=== PATIENT | female | born 1965 | race Caucasian/White ===

== ENCOUNTER 2016-06-06 15:15 | Emergency (ER) | payer OTHER ==
--- NOTE | 2016-06-06 17:08 | ED ORDER SUMMARY ---
..... Patient: GABRIELLA VELASQUEZ OrderSheet [facility] VisitID: [id number] [address] [place] [address] 50y, F Registration Date/Time: 06/06/2016 ORDER SHEET Weight: 81.1 kg (stated) Allergies: Sulfa Antibiotics, Penicillin GENERAL ORDERS: Ribs Unilat w PA Chest Left Urgent (16:00 06/06/2016 Charmaine YARBROUGH) ([facility]ck 16:[facility]) (16:40 ASchmuck) MEDICATION ORDERS: Toradol IM 60 mg (NOW) (16:02 06/06/2016 Charmaine YARBROUGH) (Ack 16:09 ASchmuck) (Cancelled: Physician Order16:32 ASchmuck) Dilaudid IM 1 mg (NOW) (16:29 06/06/2016 Charmaine YARBROUGH) (16:39 ASchmuck) Ativan IM 1 mg (NOW) (16:29 06/06/2016 Charmaine YARBROUGH) (16:39 ASchmuck) Albuterol Neb Tx 2.5 mg (NOW, N) (16:29 06/06/2016 Charmaine YARBROUGH) (17:06 ASchmuck) IV FLUIDS: ORDER SHEET NOTES: [Electronically signed by Gregorio Bermudez R.N. (22:06/06/2016)] [Electronically signed by Tyrone Ramsay MD (12:13 06/08/2016)] [Electronically locked/signed by Gregorio Bermudez R.N. (22:06/06/2016)]
--- NOTE | 2016-06-06 17:08 | ED NURSING NOTES ---
Clinical Report - Nurses [facility] [address] [place] [address] 06/06/2016 15:17 Patient: GABRIELLA VELASQUEZ TRIAGE Triage time 15:42 Jun 06 2016. Acuity: LEVEL 4. Chief Complaint: BACK PAIN. 15:50 06/06/16. Alert. SEPSIS SCREEN: Sepsis Screen. Negative (no infection suspected/documented). BRITTANY COMA SCORE: Brittany Coma Scale: 15- eyes open spontaneously (4); best verbal response- oriented x 4 (5); best motor response- obeys commands (6). --15:50 Muriel Berrios 15:42 06/06/16. BP: 136/95. HR: 101. RR: 18. O2 saturation: 92% on room air. Temp: 98.6 F. Pain level now 7/10. --15:50 Muriel Berrios. Weight: 81.1 kg stated. Height/Length: 58 inches Per Patient. BMI: 37.4. --15:49 Muriel Berrios. Medications AmLODIPine Besylate Oral. --15:45 Muriel Berrios Diabetic pill. --15:45 Muriel Beriros ProAir HFA Inhalation. --15:47 Muriel Berrios The following entry was struck by Muriel Berrios, 15:47 (06/06/16) Reason - other. <<STRICKEN ENTRY-- Steroid inhaler . --15:47 Muriel Berrios --END STRIKE>>. Medication/allergy information source: the patient. --15:50 Muriel Berrios. Allergies Sulfa Antibiotics.(Anaphylaxis) --15:46 Muriel Berrios Penicillin.(Anaphylaxis) --15:46 Muriel Berrios. History Arrived by private vehicle. Historian: patient. Accompanied by (Boyfriend). Primary physician (Pino). This started today. ( Pt reports that she hurt her back about a month and a half ago by coughing and today hurt it again by coughing. Pt reports that pain is worse this time. Pain radiates along ribs to spine on the left side.). She has had weakness and trouble walking. No history of recent trauma. No numbness or tingling. 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 (Icey hot patch). PAST MEDICAL HX: Diabetes mellitus. Hypertension. No history of heart disease or lung disease. Immunizations: up-to-date. SOCIAL HX: Heavy tobacco smoker (cigarette)- less than 1 pack per day. No alcohol use or drug use. FALL RISK ASSESSMENT: Fall risk assessment completed. No fall risk identified. NUTRITIONAL RISK ASSESSMENT: The nutritional risk assessment revealed no deficiencies. FUNCTIONAL ASSESSMENT: Functional assessment: no impairments noted. LEARNING NEEDS ASSESSMENT: The learning needs assessment revealed no barriers. SKIN INTEGRITY ASSESSMENT: Skin integrity risk assessment completed. No skin integrity risk identified. --15:50 Muriel Berrios. PROBLEMS: Hypertension. Diabetes Mellitus. --15:46 Muriel Berrios. ADDITIONAL SURGERIES: Gallbladder Surgery. --15:46 Muriel Berrios. Assessment The patient states feels the same. --15:50 Muriel Berrios. Interventions ID band on patient. --15:50 Muriel Berrios. PHYSICAL ASSESSMENT 15:50 06/06/16. Ambulatory to room. Patient gowned. GENERAL / NEURO / PSYCH: Alert. Oriented X 4. Appears in pain. RESPIRATORY: Respirations not labored. Chest nontender. CVS: Capillary refill less than 2 seconds. GI / : Abdomen soft and nontender. EXTREMITIES: Sensation intact in extremities. ROM of extremities within normal limits. BACK: Normal inspection of the neck and back. Limited ROM of the back. Soft tissue tenderness. --15:50 Muriel Berrios. NURSING PROGRESS NOTES 15:50 06/06/16. The plan of care for this patient has been created. Reassurance given. Two patient identifiers checked. Call light placed in reach. Patient placed in chair. Brakes of chair on. Patient ready for evaluation- chart flagged and ED physician and PA notified. --15:50 Muriel Berrios 16:09 06/06/16. Patient walked to radiology with tech. --16:09 Muriel Berrios 16:36 06/06/2016 Dilaudid (HYDROmorphone HCl PF) IM 1 mg given. Given in the right deltoid. Allergies verified, confirmed 5 rights and sedative warning given to the patient. --16:39 Muriel Berrios 16:37 06/06/2016 Ativan (LORazepam) IM 1 mg given. Given in the right deltoid. Allergies verified, confirmed 5 rights and sedative warning given to the patient. --16:39 Muriel Berrios 16:40 06/06/16. --16:40 Muriel Berrios 16:40 06/06/16. BP: 140/90. HR: 101. RR: 18. O2 saturation: 90% on room air. Pain level now: 08/05. --16:40 Muriel Berrios 16:40 06/06/16. Pulse oximeter and NIBP monitor placed on patient; monitor alarms on. --16:40 Muriel Berrios 17:06 06/06/2016 Albuterol Neb TX Nebulizer 2.5 mg given. Given by the respiratory therapist. --17:06 Muriel Berrios 17:08 06/06/16. Care transferred and report given (Gregorio, LUCAS). --17:08 Muriel Berrios. DISPOSITION / DISCHARGE Departure time: 1715. No learning barriers present. Discharge instructions provided and reviewed with the patient. Reviewed warnings. Reviewed medication(s) information. Treatments reviewed. Patient verbalized understanding. Written instructions provided in Kiswahili. The patient was discharged by the physician. She was discharged home. She left the Emergency Department ambulatory and via private vehicle. --17:19 Gregorio Bermudez R.N. 17:18 06/06/16. BP: 142/86. HR: 98. RR: 20. O2 saturation: 94%. Temp: 98.9 F. Pain level now 10. --17:19 Gregorio Bermudez R.N. Locked/Released at 06/06/2016 22:07 by Gregorio Bermudez R.N.
--- NOTE | 2016-06-06 17:08 | ED CLINICAL REPORT ---
Clinical Report - Physicians/Mid Levels [facility] [address] [place] [address] 06/06/2016 15:17 Patient: GABRIELLA VELASQUEZ Time Seen: 15:44 Mar 2016. Arrived- By private vehicle. Historian- patient. CPT: ER phys charges level 4 (#[id number]). HISTORY OF PRESENT ILLNESS Chief Complaint: BACK PAIN. It is described as being moderate in degree and in the area of the left lower ribs. The quality is noted to be sharp, aching and "pain". Onset was today Coughed hard and heard a pop in the left posterior thorax. This started today. ( Pt reports that she hurt her back about a month and a half ago by coughing and today hurt it again by coughing. Pt reports that pain is worse this time. Pain radiates along ribs to spine on the left side.). She has had weakness and trouble walking. No history of recent trauma. No numbness or tingling. and it is still present. No bladder dysfunction, bowel dysfunction or sensory loss. Patient notes an injury. Mechanism of injury- (cough). No other injury. Similar symptoms previously: None. Recent medical care: Not recently seen/assessed. REVIEW OF SYSTEMS No fever, chills, difficulty with urination, urinary frequency or hematuria. No skin rash, sore throat, difficulty breathing, abdominal pain or nausea. No vomiting. She has had a cough and chest pain. Coughing more recently because she ran out of her COPD medications. All systems otherwise negative, except as recorded above. PAST HISTORY Has had back injury. She has had prior back pain. Diabetes mellitus. Hypertension. No history of heart disease or lung disease. Has not had intervertebral disc disease. Medications: ProAir HFA Inhalation. Diabetic pill. AmLODIPine Besylate Oral. Allergies: Penicillin.(Anaphylaxis) Sulfa Antibiotics.(Anaphylaxis). SOCIAL HISTORY Heavy tobacco smoker (cigarette)- 1 pack per day. No alcohol use or drug use. ADDITIONAL NOTES The nursing notes have been reviewed. PHYSICAL EXAM Vital Signs: 06/06/2016 15:42 BP: 136/95. HR: 101. RR: 18. O2 saturation: 92%. Temp: 98.6 F. Appearance: Alert. Appears to be in pain. Patient in moderate distress. HEENT: Normal external inspection. ENT: Pharynx normal. Neck: Normal inspection. Neck nontender. Painless ROM. CVS: Heart sounds normal. Pulses normal. Respiratory: No respiratory distress. (Decreased BS bilaterally consistent with advanced COPD. Chest wall is very tender to palpation over the left lateral chest. No crepitus.). Abdomen: No visible injury. Soft and nontender. Bowel sounds normal. Back: Normal inspection. No tenderness. Painless ROM. Skin: Skin warm. Normal skin color. No rash. Extremities: Extremities exhibit normal ROM. Neuro: Oriented X 3. Mood/affect normal. No motor deficit. No sensory deficit. Reflexes normal. LABS, X-RAYS, AND EKG Chest X-ray: (Left 7th rib fracture. ATX vs early infiltrate. COPD.). Views: PA. Technique: good. The X-rays were independently viewed by me and interpreted contemporaneously by me. Sternum / Ribs X-rays: On the left, 7th rib fracture(s) present. No pneumothorax. Views: left ribs. Technique: good. The X-rays were independently viewed by me and interpreted contemporaneously by me. PROGRESS AND PROCEDURES Course of Care: Dilaudid 1 mg IM Ativan 1 mg IM Toradol 60 mg IM Patient is stable. Symptoms better. Patient/family counseled. Disposition: Discharged. Condition: stable. CLINICAL IMPRESSION Single left rib fracture (7th rib). COPD exacerbation: out of meds. INSTRUCTIONS Limit lifting. No strenuous activity. Warnings: SEDATIVE MEDICATION: You were given sedative medication during your visit. Do not drive or operate dangerous machinery. Your Current Medications: CONTINUE TAKING THE FOLLOWING MEDICATIONS: AmLODIPine Besylate Oral. Diabetic pill*. ProAir HFA Inhalation. Prescription Medications: Soma 350 mg: Take 1 orally every 6 hours as needed for muscle spasm. Dispense twenty (20). No refills. Substitution is permissible. Cephalexin 500mg: take 1 tab orally every 6 hours for 7 days. No refills Oxycodone/APAP 5 mg/325 mg: take 1-2 tablets orally every 4 hours as needed for pain. Dispense twenty (20). No refill. Albuterol HFA oral inhaler: inhale 2 puffs via spacer every 4 hours for 1 week, as needed for wheezing, difficulty breathing or shortness of breath, until symptoms improve. Dispense one (1) unit. No refill. Pulmicort Flexhaler 180 mcg: inhale 2 puffs every 12 hours. Rinse mouth after inhalation. Dispense one (1) unit. No refills. Substitution is permissible. Prednisone 30 mg a day for 3 days. Follow-up: Follow up with your doctor in five days. Call for an appointment. Understanding of the discharge instructions verbalized by patient. (Electronically signed by Tyrone Ramsay MD 06/08/2016 12:13)
--- NOTE | 2016-06-06 17:08 | ED ORDER SUMMARY ---
..... Patient: GABRIELLA VELASQUEZ OrderSheet [facility] VisitID: [id number] [address] [place] [address] 50y, F Registration Date/Time: 06/06/2016 ORDER SHEET Weight: 81.1 kg (stated) Allergies: Sulfa Antibiotics, Penicillin GENERAL ORDERS: Ribs Unilat w PA Chest Left Urgent (16:00 06/06/2016 Charmaine YARBROUGH) ([facility]ck [facility] (16:40 ASchmuck) MEDICATION ORDERS: Toradol IM 60 mg (NOW) (16:02 06/06/2016 Charmaine YARBROUGH) (Ack 16:09 ASchmuck) (Cancelled: Physician Order16:32 ASchmuck) Dilaudid IM 1 mg (NOW) (16:29 06/06/2016 Charmaine YARBROUGH) (16:39 ASchmuck) Ativan IM 1 mg (NOW) (16:29 06/06/2016 Charmaine YARBROUGH) (16:39 ASchmuck) Albuterol Neb Tx 2.5 mg (NOW, N) (16:29 06/06/2016 Charmaine YARBROUGH) (17:06 ASchmuck) IV FLUIDS: ORDER SHEET NOTES: [Electronically signed by Gregorio Bermudez R.N. (22:06/06/2016)] [Electronically signed by Tyrone Ramsay MD (12:13 06/08/2016)] [Electronically locked/signed by Gregorio Bermudez R.N. (22:06/06/2016)]
--- NOTE | 2016-06-06 19:54 | DIAGNOSTIC IMAGING REPORT ---
PROCEDURE: XR RIBS UNILAT W/PA CHEST-LT INDICATION: TRAUMA/INJURY TECHNIQUE: PA chest and three views of the left ribs. COMPARISON: None FINDINGS: Fractures of the left seventh and eighth ribs. Mild left basilar atelectasis. No pneumothorax. Right lung is clear. Heart size, mediastinum and pulmonary vessels are normal. IMPRESSION: 1. Acute fractures of the left seventh and eighth ribs with mild left basilar atelectasis.
--- NOTE | 2016-06-08 12:14 | ED MED RECONCILIATION SUMMARY ---
Patient: GABRIELLA VELASQUEZ Medication Reconciliation Report [facility] VisitID: [id number] [address] [place] [address] 50y, F Registration Date/Time: 06/06/2016 Weight: 81.1 kg Height/Length: 58 in. BMI: 37.4 ALLERGIES: Penicillin, Sulfa Antibiotics The patient's Home Medications are listed below: CONTINUE TAKING THE FOLLOWING MEDICATIONS: AmLODIPine Besylate Oral Diabetic pill ProAir HFA Inhalation The source(s) of the original Home Medication information: patient The following Medications were given to the patient in the Emergency Department: Dilaudid [IM] IM 1 mg, administered: 06/06/2016 4:36:00 PM Ativan [IM] IM 1 mg, administered: 06/06/2016 4:37:00 PM Albuterol [Neb Tx] Neb TX 2.5 mg, administered: 06/06/2016 5:06:00 PM The following Medications were prescribed to the patient: Prednisone 30 mg a day for 3 days. -- Tyrone Ramsay MD Soma 350 mg: Take 1 orally every 6 hours as needed for muscle spasm. Dispense twenty (20). No refills. Substitution is permissible. -- Tyrone Ramsay MD Cephalexin 500mg: take 1 tab orally every 6 hours for 7 days. No refills -- Tyrone Ramsay MD Oxycodone/APAP 5 mg/325 mg: take 1-2 tablets orally every 4 hours as needed for pain. Dispense twenty (20). No refill. -- Tyrone Ramsay MD Albuterol HFA oral inhaler: inhale 2 puffs via spacer every 4 hours for 1 week, as needed for wheezing, difficulty breathing or shortness of breath, until symptoms improve. Dispense one (1) unit. No refill. -- Tyrone Ramsay MD Pulmicort Flexhaler 180 mcg: inhale 2 puffs every 12 hours. Rinse mouth after inhalation. Dispense one (1) unit. No refills. Substitution is permissible. -- Tyrone Ramsay MD
--- NOTE | 2016-06-08 12:14 | ED MED RECONCILIATION SUMMARY ---
Patient: GABRIELLA VELASQUEZ Medication Reconciliation Report [facility] VisitID: [id number] [address] [place] [address] 50y, F Registration Date/Time: 06/06/2016 Weight: 81.1 kg Height/Length: 58 in. BMI: 37.4 ALLERGIES: Penicillin, Sulfa Antibiotics The patient's Home Medications are listed below: CONTINUE TAKING THE FOLLOWING MEDICATIONS: AmLODIPine Besylate Oral Diabetic pill ProAir HFA Inhalation The source(s) of the original Home Medication information: patient The following Medications were given to the patient in the Emergency Department: Dilaudid [IM] IM 1 mg, administered: 06/06/2016 4:36:00 PM Ativan [IM] IM 1 mg, administered: 06/06/2016 4:37:00 PM Albuterol [Neb Tx] Neb TX 2.5 mg, administered: 06/06/2016 5:06:00 PM The following Medications were prescribed to the patient: Prednisone 30 mg a day for 3 days. -- Tyrone Ramsay MD Soma 350 mg: Take 1 orally every 6 hours as needed for muscle spasm. Dispense twenty (20). No refills. Substitution is permissible. -- Tyrone Ramsay MD Cephalexin 500mg: take 1 tab orally every 6 hours for 7 days. No refills -- Tyrone Ramsay MD Oxycodone/APAP 5 mg/325 mg: take 1-2 tablets orally every 4 hours as needed for pain. Dispense twenty (20). No refill. -- Tyrone Ramsay MD Albuterol HFA oral inhaler: inhale 2 puffs via spacer every 4 hours for 1 week, as needed for wheezing, difficulty breathing or shortness of breath, until symptoms improve. Dispense one (1) unit. No refill. -- Tyrone Ramsay MD Pulmicort Flexhaler 180 mcg: inhale 2 puffs every 12 hours. Rinse mouth after inhalation. Dispense one (1) unit. No refills. Substitution is permissible. -- Tyrone Ramsay MD
--- NOTE | 2016-06-08 12:14 | ED MAR SUMMARY ---
..... Medication Administration Record [facility] [address] [place] [address] Patient: GABRIELLA VELASQUEZ Visit ID: [id number] 50y, F Weight: 81.1 kg Height/Length: 58 in BMI: 37.4 ALLERGIES: Penicillin, Sulfa Antibiotics Given 16:36 06/06/2016 Muriel Berrios, Medication Administered: DILAUDID [IM] (HYDROMORPHONE HCL PF), Dose: 1 mg IM. Medication Ordered: Dilaudid IM 1 mg (NOW). Given 16:37 06/06/2016 Muriel Berrios, Medication Administered: ATIVAN [IM] (LORAZEPAM), Dose: 1 mg IM. Medication Ordered: Ativan IM 1 mg (NOW). Given 17:06 06/06/2016 Muriel Berrios, Medication Administered: ALBUTEROL [NEB TX], Dose: 2.5 mg Nebulizer Neb TX. Medication Ordered: Albuterol Neb Tx 2.5 mg (NOW, [facility]).
--- NOTE | 2016-06-08 12:14 | ED MAR SUMMARY ---
..... Medication Administration Record [facility] [address] [place] [address] Patient: GABRIELLA VELASQUEZ Visit ID: [id number] 50y, F Weight: 81.1 kg Height/Length: 58 in BMI: 37.4 ALLERGIES: Penicillin, Sulfa Antibiotics Given 16:36 06/06/2016 Muriel Berrios, Medication Administered: DILAUDID [IM] (HYDROMORPHONE HCL PF), Dose: 1 mg IM. Medication Ordered: Dilaudid IM 1 mg (NOW). Given 16:37 06/06/2016 Muriel Berrios, Medication Administered: ATIVAN [IM] (LORAZEPAM), Dose: 1 mg IM. Medication Ordered: Ativan IM 1 mg (NOW). Given 17:06 06/06/2016 Muriel Berrios, Medication Administered: ALBUTEROL [NEB TX], Dose: 2.5 mg Nebulizer Neb TX. Medication Ordered: Albuterol Neb Tx 2.5 mg (NOW, [facility]).
--- NOTE | 2016-06-08 12:14 | ED DISCHARGE INSTRUCTIONS ---
Patient: GABRIELLA VELASQUEZ General Instructions [facility] VisitID: [id number] [place] [address] 50y, F Registration Date/Time: 06/06/2016 Single left rib fracture (7th rib). COPD exacerbation: out of meds. INSTRUCTIONS Limit lifting. No strenuous activity. Warnings: SEDATIVE MEDICATION: You were given sedative medication during your visit. Do not drive or operate dangerous machinery. Your Current Medications: CONTINUE TAKING THE FOLLOWING MEDICATIONS: AmLODIPine Besylate Oral. Diabetic pill*. ProAir HFA Inhalation. Prescription Medications: Soma 350 mg: Take 1 orally every 6 hours as needed for muscle spasm. Dispense twenty (20). No refills. Substitution is permissible. Cephalexin 500mg: take 1 tab orally every 6 hours for 7 days. No refills Oxycodone/APAP 5 mg/325 mg: take 1-2 tablets orally every 4 hours as needed for pain. Dispense twenty (20). No refill. Albuterol HFA oral inhaler: inhale 2 puffs via spacer every 4 hours for 1 week, as needed for wheezing, difficulty breathing or shortness of breath, until symptoms improve. Dispense one (1) unit. No refill. Pulmicort Flexhaler 180 mcg: inhale 2 puffs every 12 hours. Rinse mouth after inhalation. Dispense one (1) unit. No refills. Substitution is permissible. Prednisone 30 mg a day for 3 days. Follow-up: Follow up with your doctor in five days. Call for an appointment. Understanding of the discharge instructions verbalized by patient. ADDITIONAL INFORMATION Rib Fracture You have a fracture (break) of one or more ribs. Rib fractures do not require a cast like other bones. They will heal by themselves in about 4-6 weeks. The first 3-4 weeks will be the most painful because deep breathing, coughing or changing position from sitting to lying down, may cause the broken ends to move slightly. Home Care: Rest. You should not be doing any heavy lifting or strenuous exertion until the pain goes away. Because it hurts to breathe when you have a broken rib, there is risk of getting pneumonia from poor airflow through your lungs. To prevent this: Take four very deep breaths at least four times a day (exhale through pursed lips as if you are blowing up a balloon). If an "incentive spirometer" (breathing exercise device) was given to you, use it at least four times a day, or as directed. Apply an ice pack (ice cubes in a plastic bag, wrapped in a towel) over the injured area for 20 minutes every 1-2 hours the first day. Continue with ice packs 3-4 times a day for the next two days, then as needed for the relief of pain and swelling. You may use acetaminophen (Tylenol) or ibuprofen (Motrin, Advil) to control pain, unless another pain medicine was prescribed. [NOTE: If you have chronic liver or kidney disease or ever had a stomach ulcer or GI bleeding, talk with your doctor before using these medicines.] If your pain is not controlled by the treatment given, contact your doctor. Sometimes a stronger pain medicine may be needed. A nerve block (numbing the nerve between the ribs) can be performed in case of severe pain. Follow Up with your doctor during the next week, or as advised. Rarely, a broken rib will cause complications within the first few days that may not be evident during your initial exam (such as, collapsed lung, bleeding around the lung or into the abdomen, or pneumonia). Therefore, watch for the signs below. [NOTE: If x-rays were taken, they will be reviewed by a radiologist. You will be notified of any new findings that may affect your care.] Get Prompt Medical Attention if any of the following occur: Shortness of breath Increasing chest pain with breathing Dizziness, weakness or fainting New or worsening abdominal pain Fever of 100.4F (38C) or higher, or as directed by your healthcare provider Congested cough Oxycodone Hydrochloride, Acetaminophen Oral tablet What is this medicine? ACETAMINOPHEN; OXYCODONE (a set a DUANE ml fen; ox i KOE done) is a pain reliever. It is used to treat mild to moderate pain. How should I use this medicine? Take this medicine by mouth with a full glass of water. Follow the directions on the prescription label. Take your medicine at regular intervals. Do not take your medicine more often than directed. Talk to your tooling manager regarding the use of this medicine in children. Special care may be needed. Patients over 65 years old may have a stronger reaction and need a smaller dose. What side effects may I notice from receiving this medicine? Side effects that you should report to your doctor or health respiratory care specialist as soon as possible: allergic reactions like skin rash, itching or hives, swelling of the face, lips, or tongue breathing difficulties, wheezing confusion light headedness or fainting spells severe stomach pain yellowing of the skin or the whites of the eyes Side effects that usually do not require medical attention (report to your doctor or health respiratory care specialist if they continue or are bothersome): dizziness drowsiness nausea vomiting What may interact with this medicine? alcohol antihistamines barbiturates like amobarbital, butalbital, butabarbital, methohexital, pentobarbital, phenobarbital, thiopental, and secobarbital benztropine drugs for bladder problems like solifenacin, trospium, oxybutynin, tolterodine, hyoscyamine, and methscopolamine drugs for breathing problems like ipratropium and tiotropium drugs for certain stomach or intestine problems like propantheline, homatropine methylbromide, glycopyrrolate, atropine, belladonna, and dicyclomine general anesthetics like etomidate, ketamine, nitrous oxide, propofol, desflurane, enflurane, halothane, isoflurane, and sevoflurane medicines for depression, anxiety, or psychotic disturbances medicines for sleep muscle relaxants naltrexone narcotic medicines (opiates) for pain phenothiazines like perphenazine, thioridazine, chlorpromazine, mesoridazine, fluphenazine, prochlorperazine, promazine, and trifluoperazine scopolamine tramadol trihexyphenidyl What if I miss a dose? If you miss a dose, take it as soon as you can. If it is almost time for your next dose, take only that dose. Do not take double or extra doses. Where should I keep my medicine? Keep out of the reach of children. This medicine can be abused. Keep your medicine in a safe place to protect it from theft. Do not share this medicine with anyone. Selling or giving away this medicine is dangerous and against the law. Store at room temperature between 20 and 25 degrees C (68 and 77 degrees F). Keep container tightly closed. Protect from light. This medicine may cause accidental overdose and if it is taken by other adults, children, or pets. Flush any unused medicine down the toilet to reduce the chance of harm. Do not use the medicine after the expiration date. What should I tell my health care provider before I take this medicine? They need to know if you have any of these conditions: brain tumor Crohn's disease, inflammatory bowel disease, or ulcerative colitis drink more than 3 alcohol containing drinks per day drug abuse or addiction head injury heart or circulation problems kidney disease or problems going to the bathroom liver disease lung disease, asthma, or breathing problems an unusual or allergic reaction to acetaminophen, oxycodone, other opioid analgesics, other medicines, foods, dyes, or preservatives or trying to get breast-feeding What should I watch for while using this medicine? Tell your doctor or health respiratory care specialist if your pain does not go away, if it gets worse, or if you have new or a different type of pain. You may develop tolerance to the medicine. Tolerance means that you will need a higher dose of the medication for pain relief. Tolerance is normal and is expected if you take this medicine for a long time. Do not suddenly stop taking your medicine because you may develop a severe reaction. Your body becomes used to the medicine. This does NOT mean you are addicted. Addiction is a behavior related to getting and using a drug for a non-medical reason. If you have pain, you have a medical reason to take pain medicine. Your doctor will tell you how much medicine to take. If your doctor wants you to stop the medicine, the dose will be slowly lowered over time to avoid any side effects. You may get drowsy or dizzy. Do not drive, use machinery, or do anything that needs mental alertness until you know how this medicine affects you. Do not stand or sit up quickly, especially if you are an older patient. This reduces the risk of dizzy or fainting spells. Alcohol may interfere with the effect of this medicine. Avoid alcoholic drinks. There are different types of narcotic medicines (opiates) for pain. If you take more than one type at the same time, you may have more side effects. Give your health care provider a list of all medicines you use. Your doctor will tell you how much medicine to take. Do not take more medicine than directed. Call emergency for help if you have problems breathing. The medicine will cause constipation. Try to have a bowel movement at least every 2 to 3 days. If you do not have a bowel movement for 3 days, call your doctor or health respiratory care specialist. Do not take Tylenol (acetaminophen) or medicines that have acetaminophen with this medicine. Too much acetaminophen can be very dangerous. Many nonprescription medicines contain acetaminophen. Always read the labels carefully to avoid taking more acetaminophen. Albuterol Sulfate Pressurized inhalation, suspension What is this medicine? ALBUTEROL (al BYOO ter ole) is a bronchodilator. It helps open up the airways in your lungs to make it easier to breathe. This medicine is used to treat and to prevent bronchospasm. How should I use this medicine? This medicine is for inhalation through the mouth. Follow the directions on your prescription label. Take your medicine at regular intervals. Do not use more often than directed. Make sure that you are using your inhaler correctly. Ask you doctor or health care provider if you have any questions. Talk to your tooling manager regarding the use of this medicine in children. Special care may be needed. What side effects may I notice from receiving this medicine? Side effects that you should report to your doctor or health respiratory care specialist as soon as possible: allergic reactions like skin rash, itching or hives, swelling of the face, lips, or tongue breathing problems chest pain feeling faint or lightheaded, falls high blood pressure irregular heartbeat fever muscle cramps or weakness pain, tingling, numbness in the hands or feet vomiting Side effects that usually do not require medical attention (report to your doctor or health respiratory care specialist if they continue or are bothersome): cough difficulty sleeping headache nervousness or trembling stomach upset stuffy or runny nose throat irritation unusual taste What may interact with this medicine? anti-infectives like chloroquine and pentamidine caffeine cisapride diuretics medicines for colds medicines for depression or for emotional or psychotic conditions medicines for weight loss including some herbal products methadone some antibiotics like clarithromycin, erythromycin, levofloxacin, and linezolid some heart medicines steroid hormones like dexamethasone, cortisone, hydrocortisone theophylline thyroid hormones What if I miss a dose? If you miss a dose, use it as soon as you can. If it is almost time for your next dose, use only that dose. Do not use double or extra doses. Where should I keep my medicine? Keep out of the reach of children. Store at room temperature between 15 and 30 degrees C (59 and 86 degrees F). The contents are under pressure and may burst when exposed to heat or flame. Do not freeze. This medicine does not work as well if it is too cold. Throw away any unused medicine after the expiration date. Inhalers need to be thrown away after the labeled number of puffs have been used or by the expiration date; whichever comes first. Ventolin HFA should be thrown away 12 months after removing from foil pouch. Check the instructions that come with your medicine. What should I tell my health care provider before I take this medicine? They need to know if you have any of the following conditions: diabetes heart disease or irregular heartbeat high blood pressure pheochromocytoma seizures thyroid disease an unusual or allergic reaction to albuterol, levalbuterol, sulfites, other medicines, foods, dyes, or preservatives or trying to get breast-feeding What should I watch for while using this medicine? Tell your doctor or health respiratory care specialist if your symptoms do not improve. Do not use extra albuterol. If your asthma or bronchitis gets worse while you are using this medicine, call your doctor right away. If your mouth gets dry try chewing sugarless gum or sucking hard candy. Drink water as directed. You have been given the following additional information: Fracture, Rib Oxycodone Hydrochloride, Acetaminophen Oral tablet Albuterol Sulfate Pressurized inhalation, suspension Limit lifting. No strenuous activity. (Electronically signed by Tyrone Ramsay MD 06/08/2016 12:13)
== END 2016-06-06 17:13 | disposition home or self-care (01) ==
LOC: ED SRH 15:15
DX: S22.32XA Fracture of one rib, left side, initial encounter for closed fracture (principal); J44.1 Chronic obstructive pulmonary disease with (acute) exacerbation; X50.9XXA Other and unspecified overexertion or strenuous movements or postures, initial encounter; Y93.9 Activity, unspecified; Y92.9 Unspecified place or not applicable; Y99.9 Unspecified external cause status; E11.9 Type 2 diabetes mellitus without complications; I10 Essential (primary) hypertension; F17.210 Nicotine dependence, cigarettes, uncomplicated; Z79.51 Long term (current) use of inhaled steroids